=== PATIENT | female | born 1985 | race Caucasian/White ===

== ENCOUNTER → 2016-10-13 | Outpatient (CLI) | payer BC ==
[~2016-10-13] MED LIST: ALPRAZOLAM2 M2 PO; DILANTIN 100MG100 MG PO; GLUCOPHAGE1000 MG PO; KLONOPIN 1MG1 MG PO; KLONOPIN2 MG PO; LAMICTAL 100MG100 MG PO; LASIX 20MG TABL20 MG PO; LEXAPRO 10MG10 MG PO; LEXAPRO20 MG PO; LORTAB 5/500 501 TAB PO; MULTIPLE VITAMI1 TAB PO; NORCO 325 MG-51 TAB PO; OXY IR5 MG PO; PERCOCET 325 MG1 TA2 PO; PHENTERMINE30 MG PO; PRENATAL VITAMI1 TA5 PO; SEPTRA 400 MG-1 TAB PO; VALIUM 10MG10 MG/TAB PO; VALTREX1 GM PO; XANAX2 MG PO
== END ==
LOC: BHSO 13:19
DX: F31.81 Bipolar II disorder (principal)

== ENCOUNTER 2016-10-20 11:29 | Emergency (ER) | payer BC ==
[~2016-10-20] VITALS: Ht 162.6 cm; Wt 94.5 kg
[2016-10-20 11:51] VITALS: BP 137/81; PULSE 100
[2016-10-20 14:18] VITALS: TEMP 98.1
== END 2016-10-20 14:11 | disposition home or self-care (01) ==
LOC: COL.ER 11:29
DX: S60.211A Contusion of right wrist, initial encounter (principal); W22.8XXA Striking against or struck by other objects, initial encounter

== ENCOUNTER 2017-02-18 00:47 | Emergency (ER) | payer BC ==
[~2017-02-18] VITALS: Ht 160 cm; Wt 86.4 kg
[2017-02-18 00:52] VITALS: TEMP 98
[2017-02-18 02:28] VITALS: BP 120/68; PULSE 76
== END 2017-02-18 02:42 | disposition home or self-care (01) ==
LOC: COL.ER 00:47
DX: S41.112A Laceration without foreign body of left upper arm, initial encounter (principal); X78.9XXA Intentional self-harm by unspecified sharp object, initial encounter; F32.9 Major depressive disorder, single episode, unspecified; F41.9 Anxiety disorder, unspecified

== ENCOUNTER → 2017-04-19 | Outpatient (CLI) | payer BC | LOC: BHSO 12:56 | DX: F31.73 Bipolar disorder, in partial remission, most recent episode manic (principal) ==

== ENCOUNTER → 2017-10-09 | Outpatient (CLI) | payer BC | LOC: BHSO 12:49 | DX: F31.73 Bipolar disorder, in partial remission, most recent episode manic (principal) | CPT/HCPCS: G0463 ==

== ENCOUNTER → 2018-01-09 | Outpatient (CLI) | payer BC | LOC: BHSO 14:03 | DX: F43.10 Post-traumatic stress disorder, unspecified (principal) | CPT/HCPCS: G0463 ==

== ENCOUNTER 2018-04-03 23:11 | Emergency (ER) | payer BC ==
[~2018-04-03] VITALS: Ht 162.6 cm; Wt 81.8 kg
[2018-04-04 00:36] VITALS: BP 132/82; PULSE 93; TEMP 97.5
== END 2018-04-04 00:37 | disposition home or self-care (01) ==
LOC: COL.ER 23:11
DX: T23.031A Burn of unspecified degree of multiple right fingers (nail), not including thumb, initial encounter (principal); F41.9 Anxiety disorder, unspecified; F32.9 Major depressive disorder, single episode, unspecified; W39.XXXA Discharge of firework, initial encounter

== ENCOUNTER → 2018-05-10 | Outpatient (CLI) | payer BC | LOC: BHSO 14:33 | DX: F43.10 Post-traumatic stress disorder, unspecified (principal) | CPT/HCPCS: G0463 ==

== ENCOUNTER → 2018-07-19 | Outpatient (CLI) | payer BC | LOC: BHSO 14:14 | DX: F43.10 Post-traumatic stress disorder, unspecified (principal) | CPT/HCPCS: G0463 ==

== ENCOUNTER → 2018-12-27 | Outpatient (CLI) | payer BC | LOC: BHSO 09:57 | DX: F43.10 Post-traumatic stress disorder, unspecified (principal) | CPT/HCPCS: G0463 ==

== ENCOUNTER 2019-01-09 13:05 | Emergency (ER) | payer BC ==
[~2019-01-09] VITALS: Ht 160 cm; Wt 109.1 kg
[2019-01-09 13:18] VITALS: BP 134/91; TEMP 98
[2019-01-09] MEDS ORDERED: LAMICTAL 25MG T25 MG PO (13:55)
[2019-01-09] MEDS ORDERED: SEROQUEL 1100 MG/TAB PO (13:55)
[2019-01-09] MEDS ORDERED: KLONOPIN 1MG1 MG PO (13:55)
[2019-01-09] MEDS ORDERED: TYLENOL 500MG500 MG PO (13:56)
[2019-01-09] MEDS ORDERED: MOTRIN 200200 MG/TAB PO (13:56)
[2019-01-09] MEDS ORDERED: AMOXICILLIN 8751 TAB PO (14:49)
[2019-01-09 15:38] VITALS: PULSE 90
== END 2019-01-09 15:40 | disposition home or self-care (01) ==
LOC: COL.ER 13:05
DX: S00.93XA Contusion of unspecified part of head, initial encounter (principal); J32.9 Chronic sinusitis, unspecified; W22.8XXA Striking against or struck by other objects, initial encounter